=== PATIENT | male | born 1975 | race Caucasian/White ===

== ENCOUNTER 2023-03-17 19:42 | Emergency (ER) | payer MEDICAID ==
[~2023-03-17] VITALS: Ht 172.7 cm; Wt 79.4 kg
[2023-03-17 22:56] VITALS: BP 159/114; O2SAT 97
== END 2023-03-17 22:56 ==
LOC: ER 19:46
DX: S00.432A Contusion of left ear, initial encounter (principal); E78.5 Hyperlipidemia, unspecified; K21.9 Gastro-esophageal reflux disease without esophagitis; W22.8XXA Striking against or struck by other objects, initial encounter; Y93.89 Activity, other specified; Y92.89 Other specified places as the place of occurrence of the external cause; Y99.8 Other external cause status
CPT/HCPCS: 70450; 72125; A4606; A4663

== ENCOUNTER 2023-07-02 00:53 | Emergency (ER) | payer MEDICAID, OTHER ==
[~2023-07-02] VITALS: Ht 172.7 cm; Wt 80.3 kg
[2023-07-02 01:36] LABS: CALCIUM 8.9 mg/dL (8.5-10.1); CARBON DIOXIDE 27 mmol/L (21-32); CHLORIDE 106 mmol/L (98-107); CREATININE 1.3 mg/dL (0.6-1.3); GLUCOSE 95 mg/dL (74-106); POTASSIUM 4.2 mmol/L (3.5-5.1); SODIUM SERUM 142 mmol/L (136-145); UREA NITROGEN, BLOOD 22 mg/dL (7-18)
[2023-07-02 01:42] LABS: BASOPHILS # (AUTO) 0.1 K/UL (0.0-0.2); BASOPHILS % (AUTO) 0.7 % (0.0-2.0); DIFFERENTIAL COMMENT 1; EOSINOPHILS # (AUTO) 0.1 K/uL (0.0-0.7); EOSINOPHILS % (AUTO) 0.5 % (0.0-7.0); HEMATOCRIT 47.9 % (36.7-47.1); HEMOGLOBIN 16.4 g/dL (12.5-16.3); LYMPHOCYTES # (AUTO) 2.8 K/uL (0.8-4.8); LYMPHOCYTES % (AUTO) 18.3 % (20.5-51.5); MEAN CORPUSCULAR HEMOGLOBIN 32.2 uug (23.8-33.4); MEAN CORPUSCULAR HGB CONC 34 g/dL (32.5-36.3); MONOCYTES # (AUTO) 2.4 K/uL (0.1-1.30); MONOCYTES % (AUTO) 15.8 % (0.0-11.0); NEUTROPHILS # (AUTO) 9.8 K/uL (1.8-8.9); NEUTROPHILS % (AUTO) 64.7 % (38.5-71.5); PLATELET COUNT (AUTO) 175 K/uL (152-348); RED CELL DISTRIBUTION WIDTH 13.8 % (12.1-16.2); WHITE BLOOD COUNT (AUTO) 15.2 K/uL (3.6-10.2)
[2023-07-02] MEDS ORDERED: ATEN25TA PO (02:22)
[2023-07-02] MEDS ORDERED: SIMV-46 PO (02:22)
[2023-07-02] MEDS ORDERED: SENN-301 PO (02:22)
[2023-07-02] MEDS ORDERED: CHOL100045 PO (02:22)
[2023-07-02] MEDS ORDERED: DIVA125C2 PO (02:22)
[2023-07-02] MEDS ORDERED: FAMO-132 PO (02:22)
[2023-07-02] MEDS ORDERED: NITR0.4T SL (02:22)
[2023-07-02] MEDS ORDERED: ACET-3117 PO (02:22)
[2023-07-02] MEDS ORDERED: DOCU-141 PO (02:22)
[2023-07-02] MEDS ORDERED: ASPI81TA31 PO (02:22)
[2023-07-02 03:32] VITALS: BP 159/113; O2SAT 98
[2023-07-02 04:01] LABS: EOSINOPHILS % (MANUAL) 2 % (0-8); LYMPHOCYTES % (MANUAL) 19 % (20-40); MONOCYTES % (MANUAL) 15 % (2-10); NEUTROPHILS % (MANUAL) 64 % (42-75); PLATELET ESTIMATE ADEQUATE
[2023-07-02 04:02] LABS: ANISOCYTOSIS 1+
== END 2023-07-02 03:32 | disposition home or self-care (01) ==
LOC: ER 00:57
DX: M25.512 Pain in left shoulder (principal); R03.0 Elevated blood-pressure reading, without diagnosis of hypertension; R07.89 Other chest pain; E78.5 Hyperlipidemia, unspecified; K21.9 Gastro-esophageal reflux disease without esophagitis; Z79.82 Long term (current) use of aspirin; Z79.899 Other long term (current) drug therapy; Z88.0 Allergy status to penicillin
CPT/HCPCS: 36415; 70030-TC; 71045; 73020; 84484; 85025; 93005; A4606; A4663